=== PATIENT | male | born 1955 | race Caucasian/White ===

== ENCOUNTER → 2024-01-06 16:02 | Outpatient (REF) | payer OTHER, SELFPAY | LOC: HWRAD 16:02 | DX: R51.9 Headache, unspecified (principal); S06.0X0D Concussion without loss of consciousness, subsequent encounter | CPT/HCPCS: 70450 ==

== ENCOUNTER 2025-08-31 06:14 | Day surgery (SDC) | payer OTHER, SELFPAY | END 2025-08-31 09:59 | disposition home or self-care (01) | LOC: GI 06:14 | PROVIDERS: ATTENDING PHYSICIAN Internal Medicine Gastroenterology | DX: Z12.11 Encounter for screening for malignant neoplasm of colon (principal); K64.8 Other hemorrhoids; K57.30 Diverticulosis of large intestine without perforation or abscess without bleeding; Z80.0 Family history of malignant neoplasm of digestive organs; D12.0 Benign neoplasm of cecum | CPT/HCPCS: 45380; 88305 ==